=== PATIENT | female | born 1995 | race Caucasian/White ===

== ENCOUNTER 2016-10-12 14:39 | Emergency (ER) | payer OTHER ==
[2016-10-12 14:46] VITALS: TEMP 98.2
[2016-10-12] MEDS ORDERED: ONDANSETRON 4 MG/2 ML VIAL IVP ONE (15:14)
[2016-10-12] MEDS ORDERED: FAMOTIDINE 20 MG/2 ML SDV IVP ONE (15:14)
[2016-10-12] MEDS ORDERED: MAALOX/LIDO/HYOSC GI COCKTAIL 55 ML BOTTLE PO ONE (15:14)
[2016-10-12] MEDS ORDERED: NS 1,000 ML IV ONE (15:14)
[2016-10-12] MEDS ORDERED: IPRATROPIUM/ALBUTEROL 3 ML DEYVIAL IH ONE (15:16)
--- NOTE | 2016-10-12 15:21 | EDPHY ---
H & P Stated Complaint: etoh last night/n/v today/single clot of blood/cough chest hurts Time Seen by Provider: 10/12/16 15:05 HPI/ROS: HPI: 21-year-old female presents to emergency department with chief concern emesis with one episode of blood clot, chest pain. Reports onset of 7/10 midsternal pleuritic chest pain upon awakening this morning that is described as pressure and is nonradiating. Reports associated nausea and vomiting. Had 1 episode of a blood clot with 1 episode of the emesis. Reports mild shortness of breath. Denies fever, chills, abdominal pain, diarrhea, rash, urinary symptoms, back or flank pain. No calf pain or swelling. Has had upper respiratory symptoms including nasal congestion and cough for week associated with wheezing. Has a history of asthma and has used her albuterol inhaler 6 times today. Drank 6 shots last night. No trauma. No recent long car or plane travel. ROS:10 point review of systems is negative other than as stated in HPI Source: Patient Exam Limitations: No limitations - Personal History LMP (Females 10-55): Extended Cycle BCP/Inj Current Tetanus/Diphtheria Vaccine: Yes - Medical/Surgical History Hx Asthma: Yes Hx Chronic Respiratory Disease: No Hx Diabetes: No Hx Cardiac Disease: No Hx Renal Disease: No Hx Cirrhosis: No Hx Alcoholism: No Hx HIV/AIDS: No Hx Splenectomy or Spleen Trauma: No Other PMH: asthma. Has implanon - Family History Significant Family History: Other (Significant family history of for DVTs and pulmonary embolism including mother, father, grandparents) - Social History Smoking Status: Never smoked Alcohol Use: Occasionally Drug Use: None Additional Social History: [employer] student - Physical Exam Exam: Temp 36.8, heart rate 109, respiratory rate 20, blood pressure 131/79, 97% on room air General: Awake, alert, calm, cooperative. No acute distress. Head: Normalocephalic. Atraumatic. EENT: PERRLA. EOMI. No pallor or injection. Anicteric. No nystagmus. No injection. TMs intact bilaterally with normal landmarks. No rhinnorhea, nasal passages clear. Oropharynx without redness, exudates, or lesions. Tonsils 2+ bilaterally, no exudates. Neck: Supple, nontender. No lymphadenopathy. Full range of motion. No meningismus. Respiratory: Breathing unlabored. Breath sounds with expiratory wheezes and rhonchi scattered throughout. 97% room air. CV: Chest nontender, atraumatic. Heart rate regular and tachycardic. No murmur , distal pulses 2+ bilaterally. Brisk cap refill all extremities. GI: Abdomen soft, nontender. Bowel sounds normoactive and positive x4 quadrants. Neuro: Alert. Oriented x 3. Speech clear. Nonfocal cranial nerves throughout. Sensation intact all extremities. Skin: Skin warm, dry, intact. No rashes, abrasions, or lacerations. Skin turgor normal. Extremities: Full range of motion in all 4 extremities. Strength 5+ all extremities. No calf pain or swelling. Negative Homans bilaterally. Constitutional: Initial Vital Signs Temperature (C) 36.8 C 10/12/16 14:44 Heart Rate 109 H 10/12/16 14:44 Respiratory Rate 20 10/12/16 14:44 Blood Pressure 131/79 H 10/12/16 14:44 O2 Sat (%) 97 10/12/16 14:44 O2 Delivery Mode Room Air Allergies/Adverse Reactions: No Known Allergies Allergy (Unverified 10/12/16 14:43) Home Medications: Medication Instructions Recorded ALBUTEROL SULFATE 10/12/16 Albuterol Hfa Anes Only [Proair 2 puffs IH QID PRN #1 mdi 10/12/16 Hfa Anes Only] Albuterol [Proventil Neb] 2.5 mg IH Q4 PRN #20 deyvial 10/12/16 Concerta 10/12/16 Nexplanon 10/12/16 ZYRTEC 10/12/16 predniSONE 20 mg PO DAILY #15 tablet 10/12/16 Medical Decision Making - Diagnostics Imaging: Upright PA and Lateral Chest, 2 Views Total, at 3:47 p.m. Clinical History: 21-year-old female with chest pain, wheezing, hemoptysis, and a history of asthma. Comparison Study: None. Findings: The cardiac and mediastinal silhouette is normal in size. There is mild central perihilar bronchial wall thickening. The inspiratory depth is to the 11th posterior rib level. The above features reflect a virally-mediated bronchitis and/or reactive airways' disease; however, there is no focal alveolar consolidation, pleural effusion, or pneumothorax. The osseous structures are age-appropriate. The trachea is midline. Impression: Mild lung hyperexpansion, with some mild central peribronchial wall thickening. Dictated By: Neptali Enriquez MD ED Course/Re-evaluation: 1520: 21-year-old female presents to emergency department with chest pain associated with nausea, vomiting. She is tachycardic at 109. Oxygen saturation 97% on room air. She has no personal history of DVT or pulmonary embolism however she has a significant family history with blood clot in her mother, father, and grandparents. She has implanon. PE unlikely with a Wells score 1.5. Will test D-dimer and EKG. She is given a DuoNeb, chest x-ray pending. Given 4 mg IV Zofran, 20 mg IV Pepcid, GI cocktail. Of note, she did drink 6 shots of alcohol last night. 1550: EKG shows sinus tach rate 101 no evidence of acute ischemia. D-dimer is negative. White count 23992 with 84.4% neutrophils. Urine HCG negative. Chest x -ray still pending. Patient just receiving her GI cocktail and IV Pepcid. 1625: Nausea resolved. After 20 mg IV Pepcid, GI cocktail, DuoNeb, chest pain significantly improved. Wheezes somewhat improved. We will give her a 2nd albuterol neb and begin a prednisone taper. Given 60 mg here. She will follow [facility] at [facility] to school. Differential Diagnosis: Differential diagnosis includes but is not limited to and in no particular order pulmonary embolism, gastritis, dyspepsia, asthma exacerbation/reactive airway disease, acute coronary syndrome - Data Points Laboratory Results: Laboratory Results 10/12/16 15:20 10/12/16 15:20 10/12/16 15:20 WBC 10.98 H 10^3/uL (3.80-9.50) RBC 5.10 10^6/uL (4.18-5.33) Hgb 15.1 g/dL (12.6-16.3) Hct 43.4 % (38.0-47.0) MCV 85.1 fL (81.5-99.8) MCH 29.6 pg (27.9-34.1) MCHC 34.8 g/dL (32.4-36.7) RDW 12.1 % (11.5-15.2) Plt Count 249 10^3/uL (150-400) MPV 8.9 fL (8.7-11.7) Neut % (Auto) 84.4 H % (39.3-74.2) Lymph % (Auto) 7.5 L % (15.0-45.0) Atkinson % (Auto) 7.1 % (4.5-13.0) Eos % (Auto) 0.4 L % (0.6-7.6) Baso % (Auto) 0.3 % (0.3-1.7) Nucleat RBC Rel Count 0.0 % (0.0-0.2) Absolute Neuts (auto) 9.28 H 10^3/uL (1.70-6.50) Absolute Lymphs (auto) 0.82 L 10^3/uL (1.00-3.00) Absolute Monos (auto) 0.78 10^3/uL (0.30-0.80) Absolute Eos (auto) 0.04 10^3/uL (0.03-0.40) Absolute Basos (auto) 0.03 10^3/uL (0.02-0.10) Absolute Nucleated RBC 0.00 10^3/uL (0-0.01) Immature Gran % 0.3 % (0.0-1.1) Immature Gran # 0.03 10^3/uL (0.00-0.10) D-Dimer < 0.27 ug/mLFEU (0.00-0.50) Sodium 137 mEq/L (134-144) Potassium 4.2 mEq/L (3.5-5.2) Chloride 103 mEq/L (97-110) Carbon Dioxide 20 L mEq/l (22-31) Anion Gap 14 mEq/L (8-16) BUN 12 mg/dL (7-23) Creatinine 0.6 mg/dL (0.6-1.0) Estimated GFR > 60 Glucose 84 mg/dL (70-100) Calcium 10.2 mg/dL (8.5-10.4) Lipase 87.0 IU/L (23-300) Beta HCG, Qual NEGATIVE Medications Given: Discontinued Medications Albuterol (Proventil Neb) 3 ml IH EDNOW ONE Stop: 02/04/17 16:27 Last Admin: 10/12/16 16:32 Dose: 3 ml Albuterol/Ipratropium (Duoneb) 3 ml IH EDNOW ONE Stop: 10/12/16 15:17 Last Admin: 10/12/16 15:57 Dose: 3 ml Famotidine (Pepcid) 20 mg IVP EDNOW ONE Stop: 10/12/16 15:15 Last Admin: 10/12/16 15:56 Dose: 20 mg Sodium Chloride (Ns) 1,000 mls @ 0 mls/hr IV ONCE ONE PRN Reason: Wide Open Stop: 10/12/16 15:15 Last Admin: 10/12/16 15:29 Dose: 1,000 mls Miscellaneous Medication (Gi Cocktail) 55 ml PO EDNOW ONE Stop: 10/12/16 15:15 Last Admin: 10/12/16 15:43 Dose: 55 ml Ondansetron HCl (Zofran) 4 mg IVP EDNOW ONE Stop: 10/12/16 15:15 Last Admin: 10/12/16 15:43 Dose: 4 mg Departure - Departure Disposition: Home, Routine, Self-Care Clinical Impression: Chest pain, Asthma, Upper respiratory infection, Nausea & vomiting Condition: Good Instructions: Chest Pain (ED), Asthma (ED), Upper Respiratory Infection (ED), Acute Nausea and Vomiting (ED) Additional Instructions: Plan: Perhaps do not consume as many alcoholic shots as this can cause nausea and vomiting Use your albuterol inhaler 2 puffs every 4-6 hours for shortness of breath, wheezing. Prednisone as prescribed Follow up at the [facility] Friday for recheck without fail--When you call to schedule appointment, please let the office know you are an "ER follow up" appointment" Return to emergency department for worsening symptoms Referrals: IN STATE,. [Primary Care Provider] - As per Instructions Prescriptions: Albuterol Hfa Anes Only [Proair Hfa Anes Only] 2 puffs IH QID PRN #1 mdi PRN Reason: Short Of Breath/Dyspnea Albuterol [Proventil Neb] 2.5 mg IH Q4 PRN #20 deyvial PRN Reason: Short Of Breath/Dyspnea predniSONE 20 mg PO DAILY #15 tablet
[2016-10-12 15:37] LABS: % IMMATURE GRANULYOCYTES 0.3 % (0.0-1.1); ABSOLUTE IMMATURE GRANULOCYTES 0.03 10^3/uL (0.00-0.10); ADD DIFF? NO; ADD MORPH? NO; ADD SCAN? NO; ATYPICAL LYMPHOCYTE FLAG 20 (0-99); FRAGMENT RBC FLAG 0 (0-99); HEMATOCRIT 43.4 % (38.0-47.0); HEMOGLOBIN 15.1 g/dL (12.6-16.3); LEFT SHIFT FLG 0 (0-99); LIPEMIA HEMOLYSIS FLAG 90 (0-99); MEAN CELL HEMOGLOBIN 29.6 pg (27.9-34.1); MEAN CELL HEMOGLOBIN CONCENTR. 34.8 g/dL (32.4-36.7); MEAN CELL VOLUME 85.1 fL (81.5-99.8); MEAN PLATELET VOLUME 8.9 fL (8.7-11.7); PLATELET CLUMPS FLAG 0 (0-99); PLATELET COUNT 249 10^3/uL (150-400); RED CELL DISTRIBUTION WIDTH 12.1 % (11.5-15.2)
--- NOTE | 2016-10-12 15:40 | CPEKG ---
Heart Rate: 101 RR Interval: 594 P-R Interval: 172 QRSD Interval: 98 QT Interval: 348 QTC Interval: 452 P Massillon: 65 QRS Massillon: 116 T Wave Massillon: 29 EKG Severity - OTHERWISE NORMAL ECG - EKG Impression: SINUS TACHYCARDIA EKG Impression: RIGHT AXIS DEVIATION Electronically Signed By: Flaco Mckenna 12-Oct-2016 19:53:31
[2016-10-12 15:50] LABS: ANION GAP 14 mEq/L (8-16); CALCIUM 10.2 mg/dL (8.5-10.4); CARBON DIOXIDE 20 mEq/l (22-31); CHLORIDE 103 mEq/L (97-110); CREATININE 0.6 mg/dL (0.6-1.0); GLOMERULAR FILTRATION RATE > 60; GLUCOSE 84 mg/dL (70-100); POTASSIUM 4.2 mEq/L (3.5-5.2); SODIUM 137 mEq/L (134-144)
--- NOTE | 2016-10-12 16:23 | DX ---
Upright PA and Lateral Chest, 2 Views Total, at 3:47 p.m. Clinical History: 21-year-old female with chest pain, wheezing, hemoptysis, and a history of asthma. Comparison Study: None. Findings: The cardiac and mediastinal silhouette is normal in size. There is mild central perihilar bronchial wall thickening. The inspiratory depth is to the 11th posterior rib level. The above featur es reflect a virally-mediated bronchitis and/or reactive airways' disease; however, there is no focal alveolar consolidation, pleural effusion, or pneumothorax. The osseous structures are age-appropriat e. The trachea is midline. Impression: Mild lung hyperexpansion, with some mild central peribronchial wall thickening.
[2016-10-12] MEDS ORDERED: predniSONE 20 MG TAB PO ONE (16:26)
[2016-10-12] MEDS ORDERED: ALBUTEROL 3 ML DEYVIAL IH ONE (16:26)
[2016-10-12 16:32] VITALS: BP 118/77; PULSE 93; RESP 18; O2SAT 93
== END 2016-10-12 16:49 | disposition home or self-care (01) ==
DX: J45.909 Unspecified asthma, uncomplicated (principal); J06.9 Acute upper respiratory infection, unspecified; R11.2 Nausea with vomiting, unspecified
CPT/HCPCS: 96374; J2405